=== PATIENT | female | born 1995 | race African-American/Black ===

== ENCOUNTER 2020-11-26 09:28 | Emergency (ER) | payer MEDICAID ==
[~2020-11-26] VITALS: Ht 165.1 cm; Wt 58.1 kg
[~2020-11-26 09:28] MED LIST: ALBUPOW26
[2020-11-26 09:33] VITALS: BP 132/94
== END 2020-11-26 11:23 | disposition home or self-care (01) ==
LOC: ER 09:28
DX: J45.909 Unspecified asthma, uncomplicated (principal); R07.9 Chest pain, unspecified; F41.9 Anxiety disorder, unspecified; F32.9 Major depressive disorder, single episode, unspecified; Z20.822 Contact with and (suspected) exposure to COVID-19
CPT/HCPCS: 36415; 71045; 87426